=== PATIENT | male | born 1970 | race Caucasian/White ===

== ENCOUNTER 2021-06-25 10:09 | Emergency (ER) | payer OTHER, SELFPAY ==
[2021-06-25 10:44] VITALS: BP 151/92; PULSE 72; RESP 18; TEMP 36.7; O2SAT 100
--- NOTE | 2021-06-25 11:06 | ED.BACK ---
HPI - Back Pain/Injury General Chief Complaint: Back Pain/Injury Stated Complaint: Lower Back Pain Time Seen by Provider: 06/25/21 11:07 Source: patient and RN notes reviewed Mode of arrival: ambulatory Limitations: no limitations History of Present Illness HPI Narrative: 51-year-old male presents to the [facility] with complaints of back pain Related Data Allergies Allergy/AdvReac Type Severity Reaction Status Date / Time iodine Allergy Hives Verified 06/25/21 10:50 Course Vital Signs Vital signs: Vital Signs Temperature 98.1 F 06/25/21 10:44 Pulse Rate 72 06/25/21 10:44 Respiratory Rate 18 06/25/21 10:44 Blood Pressure 151/92 H 06/25/21 10:44 Pulse Oximetry 100 06/25/21 10:44 Temperature 98.1 F 06/25/21 10:44 Pulse Rate 72 06/25/21 10:44 Respiratory Rate 18 06/25/21 10:44 Blood Pressure 151/92 H 06/25/21 10:44 Pulse Oximetry 100 06/25/21 10:44 Discharge Plan Discharge Clinical Impression: Strain of lumbar region Patient Disposition: Home, Self-Care Condition: Stable Instructions: Antibiotic Form, Low Back Strain (ED), Lower Back Exercises (ED) Additional Instructions: Take pain medications as directed. Take ibuprofen as directed to decrease inflammation and to help pain. Take Baclofen (muscle relaxer) as directed. Do not drink, drive, operate machinery, or do anything dangerous while taking this medication Take Tramadol as directed for more severe pain. Do not drink, drive, operate machinery, or do anything dangerous while taking this medication. Exercise:Combine aerobic exercise, like walking or swimming, with specific exercises to keep the muscles in your back and abdomen strong and flexible. Proper Lifting:Be sure to lift heavy items with your legs, not your back. Do not bend over to pick something up. Keep your back straight and bend at your knees. Weight:Maintain a healthy weight. Being overweight puts added stress on your lower back. Avoid Smoking:Both the smoke and the nicotine cause your spine to age faster than normal. Proper Posture:Good posture is important for avoiding future problems. A therapist can teach you how to safely stand, sit, and lift. Use warm moist heat to help with pain. Follow up with Primary provider in 2-3 days, This may become a chronic condition and they will be the one to help manage your pain and order additional testing. Follow-up with your doctor for further care and evaluation or seek ER if you develop problems with bladder/bowel function, weakness or loss of feeling in one or both of your legs. Patient Language: Ukrainian Prescriptions: New tramadol 50 mg tablet 50 mg PO Q6H PRN (Reason: pain) Qty: 15 RF: 0 baclofen 10 mg tablet 10 mg PO TID Qty: 15 RF: 0 ibuprofen 600 mg tablet 600 mg PO TID PRN (Reason: pain) Qty: 30 RF: 0 Follow-up/Referrals: PHYSICIAN,PUBLIC SPEAKING TEACHER [Primary Care Provider] - Neto Casillas MD [Physician] - Time of Disposition: 11:17
== END 2021-06-25 11:35 | disposition home or self-care (01) ==
PROVIDERS: Emergency Provider Nurse Practitioner
DX: S39.012A Strain of muscle, fascia and tendon of lower back, initial encounter (principal); I10 Essential (primary) hypertension; X58.XXXA Exposure to other specified factors, initial encounter
CPT/HCPCS: 99203; G0463

== ENCOUNTER 2023-02-14 14:39 | Emergency (ER) | payer OTHER, SELFPAY ==
[2023-02-14] VITALS (10 sets, daily range): BP systolic 122–163; BP diastolic 74–112; PULSE 65–97; RESP 12–19; TEMP 36.4; O2SAT 94–100
--- NOTE | ~2023-02-14 | US_ITS ---
EXAMINATION: US paracentesis abd w/image DATE: 02/14/2023 20:13 INDICATION: Abdominal pain ascites and elevated lipase TECHNIQUE: The procedure and its risks and benefits were discussed with the patient. Potential risks discussed included bleeding and infection. The skin was prepped and draped in sterile fashion. 1% lid ocaine was used for local anesthesia. Under ultrasound guidance, a 5 Fr catheter with trochar was adv anced into the ascites in the right lower quadrant. Fluid was aspirated into vacuum bottles. The cath eter was removed, and a dressing was applied. There were no immediate complications. FINDINGS: Ultrasound images demonstrate ascites and the catheter within the fluid. IMPRESSION: 1. Successful ultrasound-guided paracentesis yielding 100 mL of slightly turbid yellow-colored fluid . Reviewed, dictated and finalized at location A. IMPRESSION: 1. Successful ultrasound-guided paracentesis yielding 100 mL of slightly turbi d yellow-colored fluid.
--- NOTE | ~2023-02-14 | US_ITS ---
EXAMINATION: US abdomen limited DATE: 02/14/2023 19:27 INDICATION: Elevated lipase. Abdominal pain. TECHNIQUE: Multiple grayscale and Doppler ultrasound images of the abdomen were obtained. COMPARISON: None FINDINGS: The pancreatic head and body are normal in appearance. The pancreatic tail is not visualized. Liver has normal echogenicity and contour, with a smooth surface. No liver lesion identified. No intrahepat ic biliary duct dilation suspected. Portal venous flow was seen in the hepatopetal, normal direction and has normal Doppler waveform. The gallbladder is normal in appearance. There is no cholelithiasis . The common bile duct measures 5 mm, which is normal. There is a small but of perihepatic ascites. A dditional small amounts of ascites are seen in the right and left lower quadrants. IMPRESSION: 1. Small amount of ascites in the right upper and bilateral lower quadrants. Otherwise unremarkable r ight upper quadrant ultrasound. Reviewed, dictated and finalized at location A. IMPRESSION: 1. Small amount of ascites in the right upper and bilateral lower quadrants. Ot herwise unremarkable right upper quadrant ultrasound.
--- NOTE | ~2023-02-14 | CT_ITS ---
EXAMINATION: CT abdomen pelvis wo con DATE: 02/14/2023 16:08 INDICATION: Left lower quadrant abdominal cramping. Diarrhea. TECHNIQUE: Computed tomography (CT) of the abdomen and pelvis was performed without intravenous contr ast. Automated exposure control and iterative reconstruction technique were employed. The dose-length product was 593.16 mGy-cm. COMPARISON: None. FINDINGS: The visualized portions of the lung bases demonstrate mild atelectasis. No pleural effusion . The heart size is normal. No pericardial effusion. The liver, gallbladder, spleen, pancreas, adrena l glands, and right kidney are normal. There are 2 mm and 3 mm stones in left kidney. The prostate is mildly enlarged. There are no dilated loops of bowel. There is wall thickening of many loops of smal l bowel. The appendix is not visualized. There are no pathologically enlarged lymph nodes. There is a moderate volume of ascites. There is mild lumbar spondylosis. IMPRESSION: 1. Moderate volume of ascites. 2. Wall thickening of small bowel, consistent with enteritis. Reviewed, dictated and finalized at location A.
--- NOTE | 2023-02-14 15:57 | ED.ABDPAIN ---
HPI - Abdominal Pain General Chief Complaint: Abdominal Pain <RACHID Davis Last Filed: 02/14/23 19:51> Stated Complaint: abdominal pain <RAHCID Davis Last Filed: 02/14/23 19:51> Time Seen by Provider: 02/14/23 15:42 <RACHID Davis Last Filed: 02/14/23 19:51> History of Present Illness HPI narrative: Patient is a 53-year-old male here for evaluation of diffuse crampy abdominal pain past several days that seems to be concentrated in his left lower quadrant. Associated with numerous episodes of diarrhea that is nonbloody. No nausea, vomiting, fevers, chills. He has no surgical history. Last thing he ate prior to onset was pizza. No history of alcohol use or drug use. <RACHID Davis Last Filed: 02/14/23 19:51> Related Data Home Medications: Home Medications Medication Instructions Recorded Confirmed losartan 100 1 tablet PO DAILY 06/25/21 06/25/21 mg-hydrochlorothiazide 25 mg tablet <RACHID Davis Last Filed: 02/14/23 19:51> Allergies/Adverse Reactions: Allergies Allergy/AdvReac Type Severity Reaction Status Date / Time iodine Allergy Hives Verified 02/14/23 14:44 <RACHID Davis Last Filed: 02/14/23 19:51> Review of Systems Review of Systems: Gen.: Denies fevers or chills Eyes: Denies eye pain or visual change ENT: Denies congestion Respiratory: Denies shortness of breath or cough CV: Denies chest pain or palpitations GI: Reports abdominal pain and diarrhea denies burning, urgency, frequency or hematuria Musculoskeletal: Denies back pain or muscle pain Neuro: Denies numbness, tingling, weakness or focal weakness Skin: Denies rash Except as documented, all other systems reviewed and negative <RACHID Davis Last Filed: 02/14/23 19:51> Exam Narrative: APPEARANCE: Well appearing, no pain in distress, well-nourished. Head: Normocephalic and atraumatic. EYES: PERRLA/EOMI, conjunctivae clear NOSE: No nasal drainage EARS: External ear normal in appearance THROAT: Oropharynx is clear. Mucous membranes are moist. NECK: Supple. No adenopathy, no masses. RESPIRATORY: Airway patent, respirations nonlabored. Clear to auscultation bilaterally, no rales, rhonchi, wheezing. CARDIOVASCULAR: Regular rate and rhythm without murmurs, rubs, or gallops. ABDOMINAL: Tenderness to palpation of the left lower quadrant without rebound tenderness or guarding. MUSCULOSKELETAL: Extremities are warm and well-perfused. Moves all extremities well. No edema. NEURO: Normal speech. No focal neurologic deficits. SKIN: Skin is warm and dry. No rashes. PSYCHIATRIC: Normal affect/mood. <Karen De La Torre PA-C - Last Filed: 02/14/23 19:51> Course Course Emergency Course: 2219-Care signed out to myself at shift change pending paracentesis and right upper quadrant ultrasound results. Right upper quadrant ultrasound without acute findings aside from a small amount of ascites. Paracentesis performed with 100 mL successfully removed. Sent for peritoneal fluid analysis and cultures. Peritoneal neutrophils 24%, reassuring against SBP. Patient was covered with 2 g dose of Rocephin in the ED. Initially had talked with Dr. Javed, hospitalist, regarding admission. Patient had been accepted for admission however, upon her initial assessment, patient states he feels better and would like to go home. Feel this is appropriate with close outpatient follow-up. Will prescribe course of Cipro and Flagyl for enteritis and provide GI information for f/u. Strict return precautions discussed. Patient voiced understanding. <Brittany Harrison PA-C - Last Filed: 02/14/23 23:55> Vital Signs Vital signs: Vital Signs Temperature 97.6 F 02/14/23 14:40 Pulse Rate 97 02/14/23 14:40 Respiratory Rate 18 02/14/23 14:40 Blood Pressure 163/103 H 02/14/23 14:40 Pulse Oximetry 1
[2023-02-14] MEDS: DICYCLOMINE HCL INJ 20 MG/2 ML VIAL IM (16:33)
[2023-02-14] MEDS: SODIUM CHLORIDE 0.9% IV 1,000 ML 999 ML IV CONT (16:33)
[2023-02-14 16:42] LABS: Basophils Absolute Auto 0.1 K/mm3 (0.0-0.1); Basophils Percent Auto 0.8 % (0.2-1.2); Eosinophils Absolute Auto 0.1 K/mm3 (0-0.3); Eosinophils Percent Auto 1.6 % (0-4.4); Hematocrit 49.2 % (42.0-52.0); Hemoglobin 16.3 g/dL (14.0-18.0); Immature Granulocyte Absolute 0.04 K/mm3 (0.00-0.031); Immature Granulocyte Percent A 0.5 % (0-0.5); Lymphocytes Absolute Auto 1.93 K/mm3 (0.9-3.2); Lymphocytes Percent Auto 22.2 % (18.3-44.2); Mean Corpuscular HGB Conc 33.1 g/dl (32-36); Mean Corpuscular Hemoglobin 29.2 pg (26-34); Mean Corpuscular Volume 88.2 fl (80-100); Mean Platelet Volume 9.5 fl (7.4-10.4); Monocytes Absolute Auto 0.7 K/mm3 (0.1-0.6); Monocytes Percent Auto 7.9 % (2.6-8.5); Neutrophils Absolute Auto 5.8 K/mm3 (1.3-6.7); Platelet Count Result 231 k/mm3 (150-375); Red Blood Count 5.58 M/mm3 (4.6-6.20); White Blood Count 8.7 K/mm3 (4.5-10.0)
[2023-02-14 16:48] LABS: Appearance Urine Clear (Clear); Bacteria Urine None Seen /hpf; Bilirubin Urine Negative (Negative); Blood Urine Negative (Negative); Color Urine Yellow (Yellow); Glucose Urine UA Negative (Negative); Ketones Urine Negative (Negative); Leukocyte Esterase Ur Negative LEU/UL (Negative); Nitrate Urine Negative (Negative); Non Pathogenic Casts 0-2; Protein Urine Trace mg/dL (Negative); RBC Urine 0-2 /hpf (0-2); Specific Grav Ur 1.016 (1.001-1.035); Squamous Epithelial Cell Urine None seen /hpf (Few); Urobilinogen Urine 0.2 mg/dL (<2.0); WBC Urine 0-5 /hpf
[2023-02-14 16:54] LABS: Alanine Aminotransferase 19 U/L (6-50); Albumin Level 3.8 g/dL (3.5-5.1); Alkaline Phosphatase 58 U/L (38-126); Anion Gap 3 mmol/L (8-16); Aspartate Amino Transferase 21 U/L (17-59); Bilirubin,Total 1.1 mg/dL (0.2-1.3); Blood Urea Nitrogen 16 mg/dL (9-20); Calcium 8.5 mg/dL (8.4-10.2); Carbon Dioxide 34 mmol/L (22-30); Chloride 95 mmol/L (98-107); Estimated CRCL calculation 74 ml/min; Estimated Glomerular Filt Rate > 60; Glucose 96 mg/dL (65-110); Lipase 748 U/L (23-300); Potassium 3.5 mmol/L (3.4-5.0); Sodium 132 mmol/L (137-145)
[2023-02-14 17:01] LABS: Add Urine Microscopic? YES
[2023-02-14] MEDS: MORPHINE SULFATE (*CRX) 4 MG/ML INJ IV PUSH (17:55)
[2023-02-14 17:59] LABS: Prothrombin Time 13.2 Seconds (11.1-14.7)
[2023-02-14 18:00] LABS: Partial Thromboplastin Time 27.3 SECONDS (22.3-36.8)
[2023-02-14] MEDS: cefTRIAXone 2 GM/NS 100 ML 2 GM/100 ML BAG IVPB (20:09)
[2023-02-14 21:02] LABS: Source Peritoneal Fluid Peritoneal Fluid
[2023-02-14 21:03] LABS: Appearance Peritoneal Fluid Clear (Clear); Color Peritoneal Fluid Yellow (Colorless)
[2023-02-14 21:05] LABS: Monocytes Peritoneal Fluid 41 %; Nucleated Cells Peritoneal Flu 678 /uL (0-500); RBC Peritoneal Fluid < 2000 /uL (0-100000)
[2023-02-14 21:06] LABS: Lymphocytes Peritoneal Fluid 10 %; Neutrophils Peritoneal Fluid 24 % (0-25)
[2023-02-14 21:08] LABS: Macrophages Peritoneal Fluid 14 %
[2023-02-14 21:09] LABS: Mesothelial Cells Peritoneal Fluid 11 %
--- NOTE | 2023-02-14 21:09 | PM.IMHP ---
H&P: HPI History of Present Illness Date/Time: 02/14/23 21:09 Meds Home Medications and Allergies Home Medications Medication Instructions Recorded Confirmed Type baclofen 10 mg tablet 10 mg PO TID #15 tabs 06/25/21 Rx ibuprofen 600 mg tablet 600 mg PO TID PRN pain #30 tabs 06/25/21 Rx losartan 100 1 tablet PO DAILY 06/25/21 06/25/21 History mg-hydrochlorothiazide 25 mg tablet tramadol 50 mg tablet 50 mg PO Q6H PRN pain #15 tabs 06/25/21 Rx Allergies Allergy/AdvReac Type Severity Reaction Status Date / Time iodine Allergy Hives Verified 02/14/23 14:44 Vital Signs Vital Signs - 24 hr 02/14/23 14:40 02/14/23 15:49 02/14/23 16:01 Temperature 97.6 F Pulse Rate 97 73 78 Respiratory Rate 18 17 19 Blood Pressure 163/103 H 132/112 H 128/91 H Pulse Oximetry 100 96 95 Oxygen Delivery Room Air 02/14/23 17:15 02/14/23 17:30 02/14/23 18:00 Temperature Pulse Rate 66 69 70 Respiratory Rate 16 14 12 Blood Pressure 128/74 Pulse Oximetry 96 94 99 Oxygen Delivery 02/14/23 18:54 02/14/23 20:11 Temperature Pulse Rate 65 71 Respiratory Rate 13 12 Blood Pressure 122/82 132/85 Pulse Oximetry 95 97 Oxygen Delivery H&P: Results Labs Labs: Short CBC 02/14/23 Range/Units 15:44 WBC 8.7 (4.5-10.0) K/mm3 Hgb 16.3 (14.0-18.0) g/dL Hct 49.2 (42.0-52.0) % Plt Count 231 (150-375) k/mm3 [facility] 02/14/23 15:44 Sodium 132 L Potassium 3.5 Chloride 95 L Carbon Dioxide 34 H BUN 16 Creatinine 1.10 Glucose 96 Calcium 8.5 Liver Function 02/14/23 Range/Units 15:44 Total Bilirubin 1.1 (0.2-1.3) mg/dL AST 21 (17-59) U/L ALT 19 (6-50) U/L Alkaline Phosphatase 58 (38-126) U/L Albumin 3.8 (3.5-5.1) g/dL Urine 02/14/23 Range/Units 15:44 Urine Color Yellow (Yellow) Urine Appearance Clear (Clear) Urine pH 6.0 (5.0-9.0) Ur Specific Brush 1.016 (1.001-1.035) Urine Protein Trace (Negative) mg/dL Urine Glucose (UA) Negative (Negative) mg/dL
[2023-02-14 21:28] LABS: Hepatitis B Surface Antigen Negative (Negative)
[2023-02-14 21:34] LABS: HAV RESULT Negative (Negative); Hepatitis B Core IgM Result Negative (Negative)
[2023-02-14 21:45] LABS: Hepatitis C Virus Antibody Negative (Negative)
[2023-02-20 20:04] LABS: Glucose Peritoneal Fluid 91 mg/dL; LDH Peritoneal Fluid 193 U/L (<63); Total Protein Peritoneal Fluid 4.5 g/dL
[2023-02-20 22:23] LABS: Albumin Peritoneal Fluid 2.6 g/dL
[2023-02-21 13:07] LABS: Amylase Peritoneal Fluid 28 U/L
== END 2023-02-14 23:09 | disposition home or self-care (01) ==
PROVIDERS: Emergency Medicine; Emergency Provider Physician Assistant
DX: K52.9 Noninfective gastroenteritis and colitis, unspecified (principal); R18.8 Other ascites; R74.8 Abnormal levels of other serum enzymes
CPT/HCPCS: 36415; 49083; 74176; 76705; 80053; 80074; 81001; 82042; 82150; 82945; 83615; 83690; 84157; 85025; 85610; 85730; 87070; 87075; 87205; 89051; 96361; 96365; 96372; 96375; 99284; J0500; J0696; J2270; J7030